=== PATIENT | male | born 1975 | race Caucasian/White ===

== ENCOUNTER 2017-02-08 11:46 | Emergency (ER) | payer SELFPAY ==
[2017-02-08] MEDS ORDERED: Ibuprofen 800 MG TAB ONE (12:25)
== END 2017-02-08 12:35 | disposition home or self-care (01) ==
LOC: MADERS 11:46
DX: M54.5 Low back pain (principal); I25.10 Atherosclerotic heart disease of native coronary artery without angina pectoris; F17.210 Nicotine dependence, cigarettes, uncomplicated; X50.1XXA Overexertion from prolonged static or awkward postures, initial encounter
CPT/HCPCS: 99283